=== PATIENT | male | born 1955 | race Caucasian/White ===

== ENCOUNTER → 2019-07-17 10:52 | Outpatient (CLI) | payer BC, SELFPAY ==
--- NOTE | 2019-07-17 10:58 | MR_ITS ---
PROCEDURE: MR LUMBAR SPINE WO CON CLINICAL INDICATION: NEURALGIA Low back pain with tingling in left leg and foot. Pain and numbness in left leg COMPARISON: No exams were available for comparison TECHNIQUE: Standard multiplanar multiecho sequences are performed without contrast. 3-D MIP and myelographic images are also rendered and reviewed FINDINGS: There is normal alignment. The spinal cord ends at the T12-L1 level. T12-L1: Mild bulging disc with mild facet ligamentum hypertrophy. L1-L2: Mild bulging disc with mild facet ligamentum hypertrophy L2-L3: Facet ligamentum hypertrophy with mild bilateral lateral recess narrowing. L3-L4: Mild bulging disc along with moderate facet ligamentum hypertrophy causing mild bilateral lateral recess and foraminal narrowing. L4-5: Mild anterolisthesis of L4 of 3 mm with bulging disc along with moderate facet ligamentum hypertrophy with moderate bilateral lateral recess narrowing and mild bilateral foraminal narrowing. The facet hypertrophic changes are slightly greater on the left with slight increase in left lateral recess narrowing compared to the right. There is transverse narrowing of the canal at this level with borderline canal stenosis. L5-S1: Unremarkable. No extruded herniated disc is evident. IMPRESSION: 1. Multilevel lumbar spondylosis. Please see above for detailed description at each level. 2. L3-L4: Mild bulging disc along with moderate facet ligamentum hypertrophy causing mild bilateral lateral recess and foraminal narrowing. 3. L4-5: Mild anterolisthesis of L4 of 3 mm with bulging disc along with moderate facet ligamentum hypertrophy with moderate bilateral lateral recess narrowing and mild bilateral foraminal narrowing. The facet hypertrophic changes are slightly greater on the left with slight increase in left lateral recess narrowing compared to the right. There is transverse narrowing of the canal at this level with borderline canal stenosis. 4. No extruded herniated disc evident Dictated by: Michelet Cool MD 07/18/2019 12:06 Electronically signed by Michelet Cool MD in [place] 07/18/2019 12:06
== END ==
PROVIDERS: PCP Family Medicine; Visit Provider Family Medicine
DX: M54.30 Sciatica, unspecified side (principal); Z79.899 Other long term (current) drug therapy
CPT/HCPCS: 72148; 76376

== ENCOUNTER → 2020-08-23 14:28 | Outpatient (CLI) | payer BC, SELFPAY ==
--- NOTE | 2020-08-23 | CA_ITS ---
APPROVED REPORT [employer]: CT Laterality: Bilateral Indications: syncope Doppler Spectral Velocity Analysis ECA (R) 108.80/20.60 cm/s ECA (L) 98.20/15.80 cm/s dICA (R) 142.20/23.50 cm/s dICA (L) 74.00/31.60 cm/s Skinny (R) 114.40/19.20 cm/s Skinny (L) 99.00/31.60 cm/s pICA (R) 100.50/17.10 cm/s pICA (L) 84.00/24.10 cm/s dCCA (R) 102.00/21.40 cm/s dCCA (L) 102.80/30.80 cm/s pCCA (R) 102.80/22.30 cm/s pCCA (L) 108.00/21.40 cm/s Vert (R) 60.80/16.30 cm/s Vert (L) 39.40/10.90 cm/s Findings Duplex evaluation demonstrates stenosis of the right proximal internal carotid artery <20% with PSV <140 cm/sec, EDV <100 cm/sec, and IC/CC Ratio <4.0. Duplex evaluation demonstrates stenosis of the left proximal internal carotid artery <20% with PSV <140 cm/sec, EDV <100 cm/sec, and IC/CC Ratio <4.0. Duplex evaluation demonstrates antegrade flow of the bilateral Vertebral Arteries. Conclusion Duplex evaluation demonstrates stenosis of the right proximal internal carotid artery <20% with PSV <140 cm/sec, EDV <100 cm/sec, and IC/CC Ratio <4.0. Duplex evaluation demonstrates stenosis of the left proximal internal carotid artery <20% with PSV <140 cm/sec, EDV <100 cm/sec, and IC/CC Ratio <4.0. Duplex evaluation demonstrates antegrade flow of the bilateral Vertebral Arteries. Electronically signed by : Michelet Cool MD 08/23/2020 17:34:14
== END ==
PROVIDERS: PCP Family Medicine; Visit Provider Family Medicine
DX: R55 Syncope and collapse (principal)
CPT/HCPCS: 93880